=== PATIENT | male | born 1975 | race African-American/Black ===

== ENCOUNTER 2016-09-21 14:46 | Inpatient (IN) | payer MEDICAID ==
[~2016-09-21] VITALS: Ht 177.8 cm; Wt 85.0 kg
[~2016-09-21 14:46] MED LIST: ACE3T PO; LEVO500T21 PO
[2016-09-21 15:21] LABS: Basophils # (auto) 0 uL; Basophils % (auto) 0.8 % (0.0-2.0); CONDITION Y; Eosinophils # (auto) 0.1 uL; Hematocrit 40.7 % (41.0-53.0); Lymphocytes # (auto) 1.3 uL; Lymphocytes % (auto) 35.2 % (10.0-50.0); Mean Corpuscular Hemoglobin 32.4 pg (28.0-32.0); Mean Corpuscular Hgb Conc. 34.4 g/dL (32.0-36.0); Mean Corpuscular Volume 94.2 fL (80.0-100.0); Mean Platelet Volume 6.2 fL (7.4-10.4); Monocytes # (auto) 0.3 uL; Monocytes % (auto) 7.3 % (0.0-12.0); Neutrophils % (auto) 53.7 % (37.0-80.0); Platelet Count (auto) 335 10^3/uL (140-450); Red Cell Distribution Width 14.9 % (11.6-16.0); White Blood Cell 3.8 10^3/uL (4.4-10.8)
[2016-09-21 15:41] LABS: Albumin 3.5 g/dL (3.4-5.0); Anion Gap 13 (5-15); Aspartate Aminotransferase 27 U/L (15-37); BUN/Creatinine Ratio 7.4; Blood Urea Nitrogen 9 mg/dL (7-18); Carbon Dioxide 21 mmol/L (21-32); Chloride 114 mmol/L (98-107); GFR African American 84 mL/min; GFR Non-African American 69 mL/min; Glucose 73 mg/dL (74-106); Magnesium 1.9 mg/dL (1.6-2.6); Potassium 3.7 mmol/L (3.5-5.1); Sodium 148 mmol/L (136-145)
[2016-09-21 15:46] LABS: Alkaline Phosphatase 92 U/L (45-117); Bilirubin, Total 0.2 mg/dL (0.2-1.0); Total Protein 7.8 g/dL (6.4-8.2)
[2016-09-21] MEDS ORDERED: SODIUM CHLORIDE 0.9% 1,000 ML IV ONE (16:14)
[2016-09-21] MEDS ORDERED: ONDANSETRON HCL 4 MG/2 ML VIAL IV ONE (16:15)
[2016-09-21] MEDS ORDERED: MORPHINE SULF INJ 2 MG/ML SYRINGE 1ML IV PRN ×2 (16:15→21:45)
[2016-09-21] MEDS ORDERED: TEMAZEPAM 15 MG CAP PO PRN (21:45)
[2016-09-21] MEDS ORDERED: ACETAMINOPHEN 325 MG TAB PO PRN (21:45)
[2016-09-21] MEDS ORDERED: HYDROcodone-ACET 5/325MG TAB PO PRN (21:45)
[2016-09-21] MEDS ORDERED: ONDANSETRON HCL 4 MG/2 ML VIAL IV PRN (21:45)
[2016-09-21 22:20] LABS: Cholesterol 181 mg/dL (< 200); HDL Cholesterol 68 mg/dL (40-59); LDL Cholesterol 93 mg/dL (< 100); Triglycerides 148 mg/dL (< 150)
[2016-09-21 23:00] VITALS: BP 128/87
[2016-09-21] MEDS: NITROGLYCERIN 0.4 MG SL TAB SL PRN ×2 (23:15→23:44)
[2016-09-21] MEDS: FAMOTIDINE 20 MG TAB PO SCH (23:20)
[2016-09-21] MEDS: METOPROLOL TARTRATE 25 MG TAB PO SCH (23:20)
[2016-09-22] MEDS ORDERED: METOPROLOL TARTRATE 1MG/1ML-5ML VIAL IV ONE
[2016-09-22 05:30] VITALS: BP 125/78
[2016-09-22 05:42] LABS: Basophils # (auto) 0.1 uL; CONDITION Y; Eosinophils # (auto) 0.2 uL; Hematocrit 42.5 % (41.0-53.0); Hemoglobin 14.3 g/dL (13.5-17.5); Lymphocytes # (auto) 1.7 uL; Lymphocytes % (auto) 26.1 % (10.0-50.0); Mean Corpuscular Hgb Conc. 33.6 g/dL (32.0-36.0); Mean Corpuscular Volume 95.3 fL (80.0-100.0); Monocytes # (auto) 0.6 uL; Monocytes % (auto) 8.9 % (0.0-12.0); Platelet Count (auto) 333 10^3/uL (140-450); Red Cell Distribution Width 14.6 % (11.6-16.0); White Blood Cell 6.6 10^3/uL (4.4-10.8)
[2016-09-22 05:52] LABS: Chloride 113 mmol/L (98-107); Potassium 3.7 mmol/L (3.5-5.1); Sodium 144 mmol/L (136-145)
[2016-09-22 05:58] LABS: Albumin 3.3 g/dL (3.4-5.0); Anion Gap 9 (5-15); BUN/Creatinine Ratio 13.8; Blood Urea Nitrogen 11 mg/dL (7-18); Calcium 8.4 mg/dL (8.5-10.1); Carbon Dioxide 22 mmol/L (21-32); GFR African American 136 mL/min; GFR Non-African American 113 mL/min; Glucose 81 mg/dL (74-106)
[2016-09-22 06:06] LABS: Alkaline Phosphatase 84 U/L (45-117); Aspartate Aminotransferase 49 U/L (15-37); Bilirubin, Total 0.6 mg/dL (0.2-1.0); Total Protein 7.2 g/dL (6.4-8.2)
[2016-09-22 07:30] VITALS: BP 124/98
[2016-09-22 09:00] VITALS: BP 124/98
[2016-09-22] MEDS ORDERED: ASPirin 81 mg TAB PO SCH (10:00)
[2016-09-22] MEDS: FAMOTIDINE 20 MG TAB PO SCH ×2 (10:30→21:37)
[2016-09-22] MEDS: ENOXAPARIN SOD 40 MG/0.4 ML SYRINGE SC SCH (10:31)
[2016-09-22] MEDS: METOPROLOL TARTRATE 25 MG TAB PO SCH ×2 (10:31→21:37)
[2016-09-22] MEDS: busPIRone HCL 10 MG TAB PO SCH ×2 (12:03→21:36)
[2016-09-22 13:00] VITALS: BP 144/87
[2016-09-22 17:00] VITALS: BP 133/78
[2016-09-22 22:16] VITALS: BP 134/99
[2016-09-23 05:26] VITALS: BP 134/88
[2016-09-23 08:00] VITALS: BP 107/72
[2016-09-23 09:00] VITALS: BP 128/97
[2016-09-23] MEDS ORDERED: ASPirin 325 MG TAB PO SCH (10:00)
[2016-09-23] MEDS: FAMOTIDINE 20 MG TAB PO SCH (10:03)
[2016-09-23] MEDS: busPIRone HCL 10 MG TAB PO SCH (10:03)
[2016-09-23] MEDS: ENOXAPARIN SOD 40 MG/0.4 ML SYRINGE SC SCH (10:03)
[2016-09-23] MEDS: METOPROLOL TARTRATE 25 MG TAB PO SCH (10:04)
[2016-09-23 11:03] VITALS: BP 111/72
== END 2016-09-23 12:23 | disposition home or self-care (01) | DRG 201 ==
LOC: EDUNIT# 14:46 → EDBD 14:46 → ER 14:55 → TELE 14:56 → TELE-CENTR 22:30
PROVIDERS: ADMIT Internal Medicine; ATTEND Internal Medicine
DX: I48.0 Paroxysmal atrial fibrillation (principal); E87.0 Hyperosmolality and hypernatremia; I10 Essential (primary) hypertension; F17.210 Nicotine dependence, cigarettes, uncomplicated; F12.90 Cannabis use, unspecified, uncomplicated; F41.9 Anxiety disorder, unspecified; Z79.82 Long term (current) use of aspirin; Z82.49 Family history of ischemic heart disease and other diseases of the circulatory system; Z91.14 Patient's other noncompliance with medication regimen; Z79.899 Other long term (current) drug therapy; Z72.89 Other problems related to lifestyle
CPT/HCPCS: 36415; 71020; 80053; 80061; 83735; 84443; 84484; 85025; 93005; 93306; 94761; 96361; 96374; 96375; J2405

== ENCOUNTER 2016-11-01 08:59 | Emergency (ER) | payer MEDICAID ==
[~2016-11-01] VITALS: Ht 177.8 cm; Wt 83.9 kg
[2016-11-01 11:13] LABS: Basophils # (auto) 0 uL; Basophils % (auto) 0.7 % (0.0-2.0); Eosinophils # (auto) 0.2 uL; Hematocrit 39.9 % (41.0-53.0); Hemoglobin 13.7 g/dL (13.5-17.5); Lymphocytes # (auto) 1.4 uL; Lymphocytes % (auto) 20.3 % (10.0-50.0); Mean Corpuscular Hemoglobin 32.1 pg (28.0-32.0); Mean Corpuscular Hgb Conc. 34.3 g/dL (32.0-36.0); Mean Corpuscular Volume 93.5 fL (80.0-100.0); Mean Platelet Volume 6.3 fL (7.4-10.4); Monocytes # (auto) 0.5 uL; Monocytes % (auto) 7.2 % (0.0-12.0); Neutrophils # (auto) 4.8 uL; Neutrophils % (auto) 68.8 % (37.0-80.0); Platelet Count (auto) 472 10^3/uL (140-450); Red Cell Distribution Width 13.6 % (11.6-16.0); White Blood Cell 6.9 10^3/uL (4.4-10.8)
[2016-11-01 11:25] LABS: Albumin 3.7 g/dL (3.4-5.0); BUN/Creatinine Ratio 6.2; Bilirubin, Total 0.6 mg/dL (0.2-1.0); Calcium 9.6 mg/dL (8.5-10.1); Potassium 3.5 mmol/L (3.5-5.1); Total Protein 8.2 g/dL (6.4-8.2)
[2016-11-01 12:41] VITALS: BP 121/91
== END 2016-11-01 13:10 | disposition home or self-care (01) ==
LOC: ER 08:59
DX: F41.9 Anxiety disorder, unspecified (principal); R51 Headache; F17.210 Nicotine dependence, cigarettes, uncomplicated; I10 Essential (primary) hypertension
CPT/HCPCS: 36415; 70450; 80053; 85025